=== PATIENT | female | born 1955 | race Caucasian/White ===

== ENCOUNTER → 2017-07-03 | Outpatient (CLI) | payer OTHER ==
--- NOTE | 2017-07-04 12:30 | CPEEG ---
[f rep st] ELECTROENCEPHALOGRAM DATE OF STUDY: DATE OF INTERPRETATION: 07/04/2017. DATE OF STUDY: 07/03/2017. INTERPRETATION: Normal EEG during wakefulness and sleep. There were no potentially epileptogenic ab normalities present during the awake or sleep recordings. REPORT: This EEG contains 9 Hz alpha activity of the posterior head regions. There was no abnormal activation at rest, during photic stimulation, or hyperventilation. The patient became drowsy and fe ll asleep during the study. There was no abnormal activation during drowsiness, sleep, or times of a rousal. /[id number]/MODL
== END ==
LOC: FCPNEURO 14:18
PROVIDERS: ATTEND Psychiatry & Neurology Neurology
DX: R29.818 Other symptoms and signs involving the nervous system (principal)

== ENCOUNTER → 2018-04-15 | Outpatient (CLI) | payer OTHER | LOC: BMCIMAGING 09:44 | PROVIDERS: ATTEND Orthopaedic Surgery | DX: Z47.1 Aftercare following joint replacement surgery (principal); Z96.653 Presence of artificial knee joint, bilateral ==

== ENCOUNTER → 2018-11-27 | Outpatient (CLI) | payer OTHER ==
[~2018-11-27] MED LIST: GADOBUTROL 10 ML VIAL IVP ONE
== END ==
LOC: FIMAGING 14:52
PROVIDERS: ATTEND Internal Medicine Hematology & Oncology
DX: C20 Malignant neoplasm of rectum (principal); R93.89 Abnormal findings on diagnostic imaging of other specified body structures
CPT/HCPCS: A9585

== ENCOUNTER → 2018-12-09 | Day surgery (SDC) | payer OTHER | END | disposition home or self-care (01) | LOC: FIMAGING 14:12 | PROVIDERS: ATTEND Internal Medicine Hematology & Oncology | PROC: 02HV33Z Insertion of Infusion Device into Superior Vena Cava, Percutaneous Approach (ICD-10-PCS; principal; 2018-12-09) | DX: Z45.2 Encounter for adjustment and management of vascular access device (principal); C20 Malignant neoplasm of rectum; R93.89 Abnormal findings on diagnostic imaging of other specified body structures | CPT/HCPCS: 36573; 76937; 77001; C1751 ==